=== PATIENT | female | born 1965 | race Hispanic/Latino ===

== ENCOUNTER 2020-01-24 16:22 | Emergency (ER) | payer SELFPAY ==
[~2020-01-24] VITALS: Ht 154.9 cm; Wt 71.7 kg
== END 2020-01-24 17:08 | disposition home or self-care (01) ==
LOC: ER 16:56
DX: M25.571 Pain in right ankle and joints of right foot (principal); G89.29 Other chronic pain; I10 Essential (primary) hypertension
CPT/HCPCS: 99282